=== PATIENT | female | born 1990 | race Caucasian/White ===

== ENCOUNTER 2021-05-09 13:56 | Emergency (ER) | payer SELFPAY ==
[~2021-05-09] VITALS: Ht 162.6 cm; Wt 53.1 kg
[2021-05-09] MEDS ORDERED: KETOROLAC TROMETHAMINE INJ 30 MG/ML VIAL ONE ×2 (14:57→15:01)
[2021-05-09] MEDS ORDERED: KETOROLAC TROMETHAMINE INJ 60 MG/2 ML VIAL IM ONE (15:00)
[2021-05-09 16:20] VITALS: BP 119/82
--- NOTE | 2021-05-09 16:25 | NUR ---
Patient discharged to home in stable condition. Written and verbal after care instructions given. Patient verbalizes understanding of instruction.
[2021-05-09] MEDS ORDERED: LORA-259 PO (21:48)
== END 2021-05-09 16:20 | disposition home or self-care (01) ==
LOC: ER 14:00
DX: M54.50 Low back pain, unspecified (principal)
CPT/HCPCS: 84703; 96372; 99283; J1885

== ENCOUNTER 2021-05-09 20:35 | Emergency (ER) | payer SELFPAY ==
[~2021-05-09] VITALS: Ht 167.6 cm; Wt 65.8 kg
--- NOTE | 2021-05-09 20:37 | NUR ---
BIBRA 89 C/O SEIZURE AT HOME, GIVEN 5 VERSED, pt to bed 6, placed on monitor, pt alert, denies any sob/cp. not in acute distress. placed on szr precaution, no injuries noted. vss. pending er provider meek
--- NOTE | 2021-05-09 21:14 | NUR ---
Dipti trent in [facility] - 05/09/21 at 2118 by ABRAM RAC #20G S/L; PATENT AND INTACT. BLOOD COLLECTED AND SENT TO LAB
--- NOTE | 2021-05-09 21:14 | NUR ---
RAC #20G S/L; PATENT & INTACT
--- NOTE | 2021-05-09 21:17 | NUR ---
PT TAKEN TO CT VIA [facility]SM[facility]
--- NOTE | 2021-05-09 21:30 | NUR ---
PT RETURNED TO ER BED [address] VIA [facility]
[2021-05-09] MEDS ORDERED: LORA-259 PO (21:48)
[2021-05-09 21:55] LABS: BASOPHILS % (AUTO) 0.4 % (0.0-2.0); HEMATOCRIT 39 % (33-45); HEMOGLOBIN 12.9 g/dL (11.5-14.8); LYMPHOCYTES # (AUTO) 1.5 K/uL (0.8-4.8); MEAN CORPUSCULAR HGB CONC 33 g/dl (31.0-36.0); MEAN CORPUSCULAR VOLUME 84 fL (82-100); MONOCYTES # (AUTO) 0.5 K/uL (0.1-1.30); MONOCYTES % (AUTO) 5.1 % (2.0-12.0); NEUTROPHILS # (AUTO) 8.7 K/uL (1.8-8.9); NEUTROPHILS % (AUTO) 80.5 % (43.0-81.0); PLATELET COUNT (AUTO) 293 K/uL (150-450); RED BLOOD CELL COUNT(AUTO) 4.65 MIL/uL (4.0-5.2); WHITE BLOOD COUNT (AUTO) 10.8 K/uL (4.3-11.0)
[2021-05-09 23:34] LABS: CALCIUM, SERUM 9.5 mg/dL (8.5-10.1); CREATININE 0.7 mg/dL (0.6-1.3); POTASSIUM 3.3 mmol/L (3.5-5.1)
--- NOTE | 2021-05-09 23:56 | NUR ---
Patient discharged to home in stable condition. Written and verbal after care instructions given. Patient verbalizes understanding of instruction.IV removed. Catheter intact and site benign. Pressure and 4x4 applied to site. No bleeding noted. Pt ambulatory with a steady gait
[2021-05-10 04:47] VITALS: BP 124/70
== END 2021-05-09 23:56 | disposition home or self-care (01) ==
LOC: ER 20:56
DX: R56.9 Unspecified convulsions (principal); F13.239 Sedative, hypnotic or anxiolytic dependence with withdrawal, unspecified
CPT/HCPCS: 36415; 70450-TC; 80048-TC; 84702-TC; 85025-TC